=== PATIENT | female | born 1990 | race Caucasian/White ===

== ENCOUNTER 2023-02-15 08:42 | Emergency (ER) | payer SELFPAY ==
[2023-02-15] VITALS (8 sets, daily range): BP systolic 104–125; BP diastolic 61–83; PULSE 56–86; RESP 13–19; TEMP 36.9; O2SAT 96–100
--- NOTE | 2023-02-15 08:46 | ECG_ITS ---
Measurements Intervals Clifford Rate: 63 P: 68 NH: 162 QRS: 53 QRSD: 99 T: 54 QT: 396 QTc: 406 Interpretive Statements SINUS RHYTHM POSSIBLE LEFT ATRIAL ENLARGEMENT [-0.1mV P WAVE IN V1/V2] POSSIBLE RIGHT VENTRICULAR CONDUCTION DELAY [RSR (QR) IN V1/V2] NO PREVIOUS ECG AVAILABLE FOR COMPARISON Electronically Signed On 02-15-2023 15:59:06 APPLICATION DEVELOPMENT SPECIALIST by Jose De Jesus Vega M.D.
[2023-02-15 08:57] LABS: Basophils Absolute Auto 0.1 K/mm3 (0.0-0.1); Basophils Percent Auto 1.1 % (0.2-1.2); Eosinophils Percent Auto 0.4 % (0-4.4); Hematocrit 30.2 % (37.0-47.0); Hemoglobin 8.3 g/dL (12.0-15.0); Immature Granulocyte Absolute 0.01 K/mm3 (0.00-0.031); Immature Granulocyte Percent A 0.2 % (0-0.5); Immature Platelet Fraction Pct 7.1 % (0.9-11.2); Lymphocytes Absolute Auto 1.83 K/mm3 (0.9-3.2); Lymphocytes Percent Auto 39.4 % (18.3-44.2); Mean Corpuscular HGB Conc 27.5 g/dl (32-36); Mean Corpuscular Hemoglobin 17.9 pg (26-34); Mean Corpuscular Volume 65.1 fl (80-100); Mean Platelet Volume 10.6 fl (7.4-10.4); Monocytes Absolute Auto 0.5 K/mm3 (0.1-0.6); Monocytes Percent Auto 10.1 % (2.6-8.5); Neutrophils Absolute Auto 2.3 K/mm3 (1.3-6.7); Neutrophils Percent Auto 48.8 % (45.5-73.1); Platelet Count Result 276 k/mm3 (150-375); Red Blood Count 4.64 M/mm3 (4.2-5.4); Red Cell Distribution Width 17.1 % (11.5-14.5); White Blood Count 4.7 K/mm3 (4.5-10.0)
[2023-02-15 09:08] LABS: Alanine Aminotransferase 15 U/L (6-35); Albumin Level 4.6 g/dL (3.5-5.1); Alkaline Phosphatase 41 U/L (38-126); Anion Gap 12 mmol/L (8-16); Aspartate Amino Transferase 21 U/L (14-36); Bilirubin,Total 0.5 mg/dL (0.2-1.3); Blood Urea Nitrogen 8 mg/dL (7-17); Calcium 9.4 mg/dL (8.4-10.2); Carbon Dioxide 21 mmol/L (22-30); Chloride 104 mmol/L (98-107); Estimated CRCL calculation 82 ml/min; Estimated Glomerular Filt Rate > 60; Glucose 97 mg/dL (65-110); Potassium 3.7 mmol/L (3.4-5.0); Sodium 137 mmol/L (137-145)
[2023-02-15 09:16] LABS: Anisocytosis 2+ (NORMAL); Hypochromasia 2+ (NORMAL); Macrocytosis 2+ (NORMAL)
[2023-02-15 09:20] LABS: Ovalocytes 2+ (NORMAL); Platelet Estimate Adequate (Adequate); Schistocytes None Seen (NORMAL)
--- NOTE | 2023-02-15 09:29 | ED.DIZZY ---
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 She then went to sit down and she did not ever passed out but she has continued to not feel well and she has the chills. she states she is just freezing now and she does not like hospitals so she is very anxious right now. She was nauseated during the episode but did not throw up. She denies any chest pain or shortness of breath associated with the episode. She states she did not eat anything for breakfast usually does not. She did consume cup of coffee and a Coca-Cola this morning. Denies any cardiac history. Denies any chance of . Denies any urinary symptoms, no abdominal pain, shortness of breath, chest pain, headache, recent illness, or any other symptoms. Related Data Allergies Allergy/AdvReac Type Severity Reaction Status Date / Time No Known Allergies Allergy Verified 02/15/23 08:59 Review of Systems Review of Systems: CONSTITUTIONAL: Denies fever, or sweats. +chills EYES: Denies visual changes, redness, or discharge. ENT: Denies rhinorrhea, congestion, sore throat, or otalgia. CARDIOVASCULAR: Denies chest pain, palpitations, or edema. RESPIRATORY: Denies cough or dyspnea. GASTROINTESTINAL: +nausea since resolved. Denies abdominal pain, vomiting, or diarrhea. GENITOURINARY: Denies dysuria or hematuria. SKIN: Denies rash or itching. MUSCULOSKELETAL: Denies back pain, joint pain, or myalgia. NEUROLOGIC: +dizziness/lightheaded. Denies headache, numbness, or weakness. PSYCHIATRIC: +anxiety. Denies SI. Denies depression. All systems reviewed & are unremarkable except as noted in HPI and below Exam Narrative: GENERAL: Well-appearing, well-nourished, thin appearing female resting on stretcher, and in no acute distress. HEAD: Normocephalic, atraumatic. EYES: PERRLA and EOMI. ENT: Nares clear, no rhinorrhea or epistaxis. Mucous membranes moist. NECK: Supple. CHEST: Clear to auscultation. No respiratory distress. HEART: Regular rate and rhythm. No murmur heard. Normal peripheral pulses. ABDOMEN: Soft, nontender, nondistended, normal active bowel sounds. EXTREMITIES: Normal range of motion. No edema. SKIN: Warm, dry, no rash. NEURO: No focal deficits. Alert and oriented x3. CN II-XII grossly intact. PSYCH: slightly anxious. Course Reevaluation(s) Reevaluation #1: resting, denies pain, discussed her results including anemia and iron deficient. she has a hx of this she now states and has had to have infusions. discussed f/u Date: 02/15/23 Time: 11:54 Vital Signs Vital signs: Vital Signs Temperature 98.4 F 02/15/23 08:42 Pulse Rate 86 02/15/23 08:42 Respiratory Rate 16 02/15/23 08:42 Blood Pressure 117/78 02/15/23 08:42 Pulse Oximetry 100 02/15/23 08:42 Oxygen Delivery Room Air 02/15/23 08:42 Temperature 98.4 F 02/15/23 08:42 Pulse Rate 66 02/15/23 12:00 Respiratory Rate 16 02/15/23 12:00 Blood Pressure 111/70 02/15/23 12:00 Pulse Oximetry 96 02/15/23 12:00 Oxygen Delivery Room Air 02/15/23 08:45 MDM - Dizziness MDM Narrative Medical decision making narrative: Patient presents for dizziness/ lightheadedness this morning. She did not have a actual syncopal event. There is no chest pain or shortness of breath associated. She does have a lot of anxiety. Will obtain full workup including EKG, urine, labs and closely monitor. She is nontoxic. Patient's labs today show anemia with iron deficiency. Patient denied relate this to me initially however when talking or prior to discharge she states sh
[2023-02-15 09:31] LABS: Influenza A QL RT-PCR Negative (Negative); Influenza B QL RT-PCR Negative (Negative); RSV RNA, RT-PCR Negative (Negative); SARS-CoV-2 RNA PCR Negative (Negative)
[2023-02-15 10:32] LABS: Appearance Urine Clear (Clear); Bacteria Urine Rare /hpf; Bilirubin Urine Negative (Negative); Blood Urine Negative (Negative); Color Urine Yellow (Yellow); Glucose Urine UA Negative (Negative); Ketones Urine Negative (Negative); Leukocyte Esterase Ur Trace LEU/UL (Negative); Nitrate Urine Negative (Negative); Non Pathogenic Casts 0-2; Protein Urine Negative (Negative); RBC Urine 0-2 /hpf (0-2); Specific Grav Ur 1.019 (1.001-1.035); Squamous Epithelial Cell Urine Few /hpf (Few)
[2023-02-15 10:37] LABS: Add Urine Microscopic? YES
[2023-02-15 10:57] LABS: Iron 18 ug/dL (37-170)
[2023-02-15 11:09] LABS: Percent Iron Saturation 4 % (20-50)
[2023-02-15] MEDS: SODIUM CHLORIDE 0.9% IV 1,000 ML 999 ML IV CONT (11:33)
== END 2023-02-15 12:00 | disposition home or self-care (01) ==
PROVIDERS: Emergency Medicine; Emergency Provider Nurse Practitioner; PCP Family Medicine
DX: D50.9 Iron deficiency anemia, unspecified (principal); R42 Dizziness and giddiness; Z20.822 Contact with and (suspected) exposure to COVID-19
CPT/HCPCS: 36415; 80053; 81001; 81025; 83540; 83550; 85025; 85055; 87086; 87088; 87637; 93005; 96360; 99284; J7030